=== PATIENT | male | born 1940 | race Caucasian/White ===

== ENCOUNTER → 2016-05-06 | Outpatient (CLI) | payer MEDICARE ==
[~2016-05-06] MED LIST: ADVAIR HFA; AMLO5TAB96 PO; ASTE137S5; DIAZ5 PO; FENO50TA PO; FOSI20 PO; LEVA750T9 PO; MONT10TA2 PO; PROP80C PO; PROT40TA PO; XYZAL PO; ZOCO40TA PO
[2016-05-06 12:18] LABS: BLOOD GAS BASE EXCESS 3.6 mmol/L (-2-2); BLOOD GAS CARBOXYHEMOGLOBIN 1.8 % (0-4); BLOOD GAS HCO3 28 mmol/L (22-26); BLOOD GAS METHEMOGLOBIN 1.2 % (0-2); BLOOD GAS O2 HGB SATURATION 90 % (90-100); BLOOD GAS OXYGEN CONTENT 20.3 Vol % (12.0-20.0); BLOOD GAS PCO2 49 mmHg (38-42); BLOOD GAS PO2 68 mmHg (61-120); CRITICAL VALUE NO; FIO2 21 %; TEMP CORR TO 98.6
[2016-05-06 12:19] LABS: DRAW SITE RT RADIAL; NUMBER OF ARTERIAL PUNCTURES 1; STAT NO; ULNAR PULSE PRESENT
--- NOTE | 2016-05-11 12:28 | RSPPFT ---
DATE OF PROCEDURE: 05/06/16 COMMENTS: Spirometry shows FVC of 2.8 at 62% of predicted, FEV1 of 2.2 at 76%, FEV1/FVC ratio is normal. Flow is decreased at FEF 50 and FEF 75. There is no response after bronchodilator treatment. Lung volumes show residual volume is increased. TLC is normal. Diffusion capacity is normal. Flow volume loop indicates a normal pattern. IMPRESSION: 1. Mild small airways obstructive lung disease. 2. No response after bronchodilator treatment. 3. Normal lung volumes. 4. Normal diffusion. 5. Blood gases show hypoxia with pH of 7.38, PCO2 of 49, PO2 of 68, BiCarb of 28 and O2 Saturation at 90%.
== END ==
LOC: HRSP 11:48
PROVIDERS: ATTEND Specialist
DX: R06.00 Dyspnea, unspecified (principal)
CPT/HCPCS: 36600; 82805; 94060; 94726; 94729